=== PATIENT | male | born 1995 | race Caucasian/White ===

== ENCOUNTER 2016-11-16 15:55 | Emergency (ER) | payer BC, OTHER ==
[~2016-11-16] VITALS: Ht 185.4 cm; Wt 86.2 kg
== END 2016-11-16 18:08 | disposition home or self-care (01) ==
LOC: SED 15:55 → CED 15:55
DX: T40.1X1A Poisoning by heroin, accidental (unintentional), initial encounter (principal); J45.909 Unspecified asthma, uncomplicated; Z98.890 Other specified postprocedural states; Z88.0 Allergy status to penicillin
CPT/HCPCS: 36415; 99284; J2405